=== PATIENT | female | born 1955 | race Native Hawaiian/Other Pacific Islander ===

== ENCOUNTER 2017-12-08 10:05 | Day surgery (SDC) | payer BC ==
[2017-12-08 11:18] LABS: POTASSIUM 3.8 mmol/L (3.6-5.2)
== END 2017-12-08 14:15 | disposition home or self-care (01) ==
LOC: OR 10:05
PROVIDERS: Student in an Organized Health Care Education/Training Program
PROC: 0JPT0WZ Removal of Totally Implantable Vascular Access Device from Trunk Subcutaneous Tissue and Fascia, Open Approach (ICD-10-PCS; principal; 2017-12-08)
DX: T80.212A Local infection due to central venous catheter, initial encounter (principal); A48.8 Other specified bacterial diseases
CPT/HCPCS: 80053; 87070; 87076; 87077; 87185; 87205; J2001; J2250; J2704; J3010

== ENCOUNTER 2017-12-19 15:51 | Outpatient (CLI) | payer BC | END 2017-12-19 18:21 | disposition home or self-care (01) | LOC: RAD 15:51 | DX: R22.1 Localized swelling, mass and lump, neck (principal) ==

== ENCOUNTER 2018-01-23 15:08 | Outpatient (CLI) | payer BC ==
[2018-01-23 15:38] LABS: PLATELET COUNT 345 K/uL (152-353)
[2018-01-23 16:27] LABS: POTASSIUM 4.3 mmol/L (3.6-5.2)
== END 2018-01-23 21:59 | disposition home or self-care (01) ==
LOC: LABW 15:08
PROVIDERS: Surgery Surgical Oncology
DX: C20 Malignant neoplasm of rectum (principal)
CPT/HCPCS: 36415; 80053; 82378; 85027; 93005